=== PATIENT | male | born 1980 | race African-American/Black ===

== ENCOUNTER 2017-05-15 18:32 | Emergency (ER) | payer OTHER ==
[~2017-05-15] VITALS: Ht 167.6 cm; Wt 124.7 kg
[~2017-05-15 18:32] MED LIST: FISH OIL 1,001000 M1 PO; HYDROCODONE-AP1 EAC6 PO; IBUPROFEN 200200 M1 PO; IBUPROFEN 600600 M1 PO; IBUPROFEN 800800 MG PO; MUCINEX TA600 MG/TA2 PO; MULTIVITAMINS1 EAC7 PO; NOHOMEMEDICATIONS; NORCO 5-325 TA1 EACH PO; NORFLEX100 MG PO; PROMETHAZI6.25 MG/2 PO; TRAMADOL 50 MG50 MG PO; VALIUM5 MG PO; VICODIN 5-5001 EACH PO; ZYRTEC10 M5 PO
[2017-05-15] MEDS ORDERED: NORCO 5-325 TA1 EACH PO (20:03)
== END 2017-05-15 20:26 | disposition home or self-care (01) ==
LOC: ER 18:32
DX: S86.022A Laceration of left Achilles tendon, initial encounter (principal); X58.XXXA Exposure to other specified factors, initial encounter; Y93.67 Activity, basketball; Y92.89 Other specified places as the place of occurrence of the external cause; Y99.8 Other external cause status

== ENCOUNTER 2017-12-15 19:46 | Emergency (ER) | payer OTHER ==
[~2017-12-15] VITALS: Ht 170.2 cm; Wt 127.5 kg
--- NOTE | ~2017-12-15 | EKG ---
[address] [address] [place] [address] ELECTROCARDIOGRAM REPORT Name: MARY SANCHEZ [place] [id number] Admission: 12/15/17 Attend Phys: Discharge: 12/15/17 Date of : 82 Report #: [id number] THIS REPORT FOR: //name// [facility] ED Test Date: 2017-12-15 Test Time: 20:01:04 Pat Name: MARY SANCHEZ Department: Room: Gender: Manufacturing Supervisor: CARINA : 1980 Requested By: Yobany Naranjo Order Number: [id number] MD: Tim Croft Measurements Intervals [place] Rate: 66 P: 17 LA: 168 QRS: -33 QRSD: 112 T: 16 QT: 360 QTc: 378 Interpretive Statements Sinus rhythm Normal tracing Compared to ECG 11/09/2010 21:40:21 Incomplete right bundle-branch block now present Left ventricular hypertrophy now present Sinus bradycardia no longer present Electronically Signed On 12-16-2017 8:07:27 CDT by Tim Croft [email or web address] <ELECTRONICALLY SIGNED> By: Tim Croft MD, [facility] 12/16/17806 00 00 Tim Croft MD, FAC /EPI
[2017-12-15 20:22] LABS: ABSOLUTE NEUTROPHILS 7.9 thou/uL (1.4-8.2); BASOPHILS 0.7 % (0.0-2.0); HEMATOCRIT 42.2 % (42.0-52.0); LYMPHOCYTES 25.2 % (24.0-44.0); MCH 24.9 pg (26.0-34.0); MCHC 33.2 g/dL (28.0-37.0); MCV 75.1 fL (80.0-100.0); MONOCYTES 7.9 % (1.0-8.0); PLATELET COUNT 222 thou/uL (150-400); POLYS 63.2 % (36.0-66.0); RBC 5.62 mil/uL (4.50-6.00); RDW 15.5 % (10.5-14.5); WBC 12.5 thou/uL (4.0-11.0)
[2017-12-15 20:32] LABS: ANION GAP 6 mmol/L (7-16); BUN 15 mg/dL (7-18); CALCIUM 9.7 mg/dL (8.5-10.1); CHLORIDE 102 mmol/L (98-107); CO2 28 mmol/L (21-32); CREATININE 1.4 mg/dL (0.7-1.3); GLUCOSE 117 mg/dL (74-106); POTASSIUM 3.5 mmol/L (3.5-5.1); SODIUM 136 mmol/L (136-145)
[2017-12-15 20:40] LABS: TROPONIN-I <0.06 ng/mL (<0.06)
[2017-12-15] MEDS ORDERED: PREDNISONE 20 M20 MG PO (21:06)
[2017-12-15 21:19] VITALS: BP 124/55
== END 2017-12-15 21:25 | disposition home or self-care (01) ==
LOC: ER 19:46
PROVIDERS: Physician Assistant
DX: L25.0 Unspecified contact dermatitis due to cosmetics (principal); T49.8X5A Adverse effect of other topical agents, initial encounter; Y92.89 Other specified places as the place of occurrence of the external cause; R00.2 Palpitations